=== PATIENT | male | born 1950 | race Caucasian/White ===

== ENCOUNTER 2017-05-03 23:01 | Emergency (ER) | payer MEDICARE ==
[2017-05-03] MEDS ORDERED: Acetaminophen 500 MG TAB ONE (23:26)
[2017-05-03] MEDS ORDERED: Benzonatate 100 MG CAP ONE (23:26)
== END 2017-05-03 23:55 | disposition home or self-care (01) ==
LOC: BURERS 23:01
DX: J11.1 Influenza due to unidentified influenza virus with other respiratory manifestations (principal); I48.91 Unspecified atrial fibrillation; E11.9 Type 2 diabetes mellitus without complications; Z79.84 Long term (current) use of oral hypoglycemic drugs; Z79.82 Long term (current) use of aspirin
CPT/HCPCS: 99283

== ENCOUNTER 2019-09-27 19:39 | Emergency (ER) | payer MEDICARE ==
[2019-09-27 20:16] LABS: Bilirubin Negative (Negative); Blood, Urine Trace (Negative); Clarity Clear (Clear); Glucose, Urine (Dipstick) 500 mg/dL (Negative); Leukocyte Negative (Negative); Nitrite Negative (Negative); Protein, Urine (Dipstick) 100 mg/dL (Neg-Trace); Urobilinogen 0.2 mg/dL (Less than 2)
[2019-09-27 20:17] LABS: RBC/HPF 0-3 HPF (0-3); Squamous Epithelial 0-3 HPF (0-3); WBC/HPF 0-3 HPF (0-3)
[2019-09-27 20:18] LABS: Bacteria/HPF Rare-Few HPF (None Seen); Other Microscopic Description C&S SET UP
== END 2019-09-27 20:20 | disposition home or self-care (01) ==
LOC: BURERS 19:39
DX: R33.9 Retention of urine, unspecified (principal); I11.0 Hypertensive heart disease with heart failure; I50.9 Heart failure, unspecified; I48.91 Unspecified atrial fibrillation; I49.9 Cardiac arrhythmia, unspecified; E11.9 Type 2 diabetes mellitus without complications; E78.5 Hyperlipidemia, unspecified; Z79.899 Other long term (current) drug therapy; Z79.01 Long term (current) use of anticoagulants; Z79.4 Long term (current) use of insulin
CPT/HCPCS: 51702; 81003; 81015; 87086

== ENCOUNTER 2019-09-30 14:13 | Emergency (ER) | payer MEDICARE | END 2019-09-30 15:56 | disposition home or self-care (01) | LOC: BURERS 14:13 | DX: Z46.6 Encounter for fitting and adjustment of urinary device (principal); I11.0 Hypertensive heart disease with heart failure; I50.9 Heart failure, unspecified; E11.9 Type 2 diabetes mellitus without complications; E78.5 Hyperlipidemia, unspecified | CPT/HCPCS: 93005 ==

== ENCOUNTER 2025-03-07 08:04 | Outpatient (CLI) | payer MEDICARE | END 2025-03-07 08:05 | disposition home or self-care (01) | LOC: BURLAB 08:04 | PROVIDERS: ATTEND Internal Medicine Cardiovascular Disease | DX: I48.0 Paroxysmal atrial fibrillation (principal); I50.22 Chronic systolic (congestive) heart failure | CPT/HCPCS: 36415; 82607; 82746 ==